=== PATIENT | female | born 1950 | race Caucasian/White ===

== ENCOUNTER → 2020-09-23 | Outpatient (CLI) | payer MEDICARE, OTHER | LOC: KOH-I 09-14 14:00 | DX: J32.9 Chronic sinusitis, unspecified (principal); R51.9 Headache, unspecified; J32.2 Chronic ethmoidal sinusitis | CPT/HCPCS: 70486 ==

== ENCOUNTER → 2021-04-27 | Outpatient (CLI) | payer MEDICARE, OTHER | LOC: EXRD 04-22 10:30 → KOH-I 08:00 | DX: R10.9 Unspecified abdominal pain (principal); M51.9 Unspecified thoracic, thoracolumbar and lumbosacral intervertebral disc disorder; E55.9 Vitamin D deficiency, unspecified; E53.8 Deficiency of other specified B group vitamins; K76.0 Fatty (change of) liver, not elsewhere classified | CPT/HCPCS: 76705 ==